=== PATIENT | female | born 1970 | race Caucasian/White ===

== ENCOUNTER 2016-08-02 09:17 | Inpatient (IN) ==
--- NOTE | 2016-08-02 09:40 | Anesthesia Evaluation PreOp ---
Date of Encounter: 08/02/16 Time of Encounter: 09:38 - Past History Planned Operation: TAHBSO Cardiac History: HTN, Hyperlipidemia Pulmonary History: Snore USED [employer] SALESPERSON History: Other (anxiety, no glaucoma) Other Medical History: Denies Any Significant HX Anesthesia History: No Prior Anesthetic Complications, Past Anesthesia (tonsils) Test: Negative Alcohol Use: occasionally Medications and Allergies Allergies Penicillins Allergy (Unverified 07/27/16 09:54) Rash - Meds/Allergy Pre-op Review Medications Reviewed: Yes Allergies Reviewed: Yes Beta Blockers on Current Med List: Yes If Beta Blockers taken, Date/Time (Last Dose taken): bisoprolol 2/5 2100 Anesthesia Results - Labs Laboratory Tests 04/30/16 07/27/16 07/27/16 14:47 10:05 10:05 Hgb 10.1 L Hct 37.6 Plt Count 355 Potassium 4.0 Serum , Qual 07/27/16 10:05 Hgb Hct Plt Count Potassium Serum , Qual Negative - Imaging EKG: report reviewed (nsr) Anesthesia Exam O2 Sat Height 1.52 m Weight 77.111 kg Height: 1.5 Weight: 77 NPO (# of Hours): >8 - HEENT Pupil (Motor): Pupils equal, EOMI Mallampati: I Teeth: Normal Oral Opening: Greater than 3 - USED CAR SALESPERSON LOC: Oriented USED CAR SALESPERSON Motor: Normal RUE, Normal LUE, Normal RLE, Normal LLE, Normal Face USED CAR SALESPERSON Sensory: Normal: RUE, LUE, RLE, LLE, Face - Cardiac Rhythm: Regular Murmur: None - Pulmonary Breath Sounds: bilateral Clear Respiratory Effort: Symmetrical Anesthesia Assess/Plan ASA Score: 2 Modified Pari Scale for Level of Consciousness: Cooperative, oriented, and tranquil Anesthetic Plan: General, Regional Monitoring Plan: Standard Monitors Recovery Plan: PACU
[2016-08-02] MEDS ORDERED: CeFAZolin Pre 2,000 MG/100 ML 2,000 MG/100 ML BAG IVPB ONE (09:42)
--- NOTE | 2016-08-02 09:44 | History & Physical Report ---
Date of Encounter: 08/02/16 Time of Encounter: 09:35 24 Hour HP Update - Instructions Instructions: If the History and Physical is less than 30 days old and was completed prior to A.M. admission and or procedure and has NOT been updated on calendar day of procedure please complete this update prior to performing procedure. - Update Patient reports changes in Medical Condition: No Changes in assessment/condition: No Changes in Medication: No Preop tests/diagnostics Reviewed: Yes Surgery Remains Indicated: Yes Consent for Planned Operative Procedure(s) Verified: Yes - Pre-Operative Checklist Preoperative Checklist Indicated: Yes Prophylactic Antibiotic Ordered: Yes Home Medications Include Beta Leyda: Yes Beta Leyda Taken Today (Day of Surgery): No Beta Leyda Taken Yesterday (Day Prior to Surgery): Yes Is VTE Prophylaxis Indicated?: Yes
[2016-08-02] MEDS ORDERED: Ringers Solution, Lactated 1,000 ML IVC SCH (09:45)
[2016-08-02] MEDS ORDERED: *HR* FentaNYL (PF) 100 MCG/2 ML VIAL ONE ×2 (09:50→10:44)
[2016-08-02] MEDS ORDERED: Scopolamine Patch 1.5 MG PATCH.TD72 TD ONE (09:51)
[2016-08-02] MEDS ORDERED: *HR* Midazolam HCl 2 MG/2 ML VIAL ONE ×2 (09:51→09:57)
[2016-08-02] MEDS ORDERED: *HR* Propofol 200 MG/20 ML VIAL IVP ONE ×2 (09:51→09:53)
[2016-08-02] MEDS ORDERED: Lidocaine -MPF 2% 2 ML VIAL ONE (09:53)
[2016-08-02] MEDS ORDERED: *HR* Rocuronium Bromide 50 MG/5 ML VIAL ONE (09:54)
[2016-08-02] MEDS ORDERED: Bupivacaine/Clonidine Syringe 1 EACH SYRINGE ONE (09:56)
--- NOTE | 2016-08-02 10:33 | Anesthesia Procedures ---
Date of Encounter: 08/02/16 Time of Encounter: 10: Procedures: Anesthesia - Nerve Block Procedure Date: 08/02/16 Time: 10: Allergies/Adv Reactions: pcn Pre-op Diagnosis: menorrhagia Surgical Procedure: CASSY Checklist: Correct Patient Identifier, Correct procedure, History checked Correct side: Right (bilat) Blood Thinner: No Monitor Applied: EKG, BP, Pulse Oximetry Supplemental Oxygen via Nasal Cannula (L/min): 2 Indication: Post Op Analgesia (request per dr [email or web address]) Pre-op Neuro Deficits: No Block Type: Other (bilat QL1 ) Catheter placed: No Sterile Technique: Yes Ultrasound used: Yes Anatomy identified: Yes Visual spread of Local: Yes Neuro Stimulation: No Blood on Needle Aspiration: No Smooth Injection of Local: Yes Pain with Injection of Local: No Prep: Chlorhexadine Needle: 22 x 50 mm Stimuplex Local: 0.25% Bupivicaine w/Clonidine 20 mcg/cc Volume (cc): 40 Number of Attempts: 1 Complications: None/effective block Vitals: see OR note, block performed post indn
[2016-08-02] MEDS ORDERED: Lacri-Lube 3.5 GM TUBE ONE (10:37)
[2016-08-02] MEDS ORDERED: *HR* HYDROmorphone 2 MG/ML SYRINGE ONE (10:47)
[2016-08-02] MEDS ORDERED: Dexamethasone 4 MG/ML VIAL ONE (10:47)
[2016-08-02] MEDS ORDERED: Ondansetron 4 MG/2 ML VIAL ONE (10:47)
[2016-08-02] MEDS ORDERED: Neostigmine Methylsulfate 3 MG/3 ML SYRINGE ONE (10:56)
[2016-08-02] MEDS ORDERED: *HR* Promethazine 25 MG/ML VIAL IVP PRN (11:01)
[2016-08-02] MEDS ORDERED: Ketorolac 30 MG/ML VIAL ONE (11:01)
--- NOTE | 2016-08-02 11:47 | OB/GYN Procedure Note ---
Hysterectomy - Diagnosis Date of procedure: 08/02/16 Hysterectomy pre-op: symptomatic leiomyomata Post-op diagnosis: same - Procedure Hysterectomy procedure: total abdominal hysterectomy, bilateral salpingo- oophorectomy Surgeon: Dariela Cm Pin Sorter And Bagger: Vee Ventura Anesthesia provider: Te Eisenberg Anesthesia Type: General Estimated blood loss (cc): 50 Complications: none Fluids: crystalloid Urine output (cc): 100 Specimens: right ovary, uterus, cervix, left ovary, right fallopian tube, left fallopian tube Findings: enlarged fibroid uterus Disposition: PACU Narrative: Patient was taken to operative suite and placed under general anesthesia without difficulty. She was then prepped and draped in the normal sterile fashion in dorsal supine position. Antibiotics were given at room time. SCDs are on and active. A Pfannenstiel skin incision is then made and carried through to the underlying layer fascia with the Bovie. The fascia was then incised in the midline and the incision extended laterally with the Vega scissors. The fascia was then tented up and dissected off the rectus muscle sharply. Rectus muscles are in the midline. Peritoneum is entered sharply and the incision is extended superiorly and inferiorly with good visualization of the bladder. Self-retaining Nate retractor is then placed. The bowel was packed using moist laparotomy sponges. The uterus is brought to the incision and found to be enlarged with multiple fibroids. Normal appearing ovaries and tubes. Bilateral cornua were clamped with Carri clamps. The left ovary and tube were then retracted medially. Then ureters identified well inferior of the transection point of the infundibulopelvic ligament. Using the LigaSure device didn't reveal pelvic ligament was coagulated and transected. The left round ligament was in transected and cauterized using the LigaSure. In a similar fashion on the right side the right ovary and pedicle were retracted medially and the infundibulopelvic ligament is cauterized and transected. This is carried through round ligament as well.. A bladder flap was created sharply. The bladder was retracted anteriorly, and serial clamps are used through the uterine artery using a clamp, cut, and suture ligate with 0 Vicryl technique. The enlarged uterus was then amputated using Bovie electrocautery. A thyroid clamp was then placed on the cervical stump the cervix is elevated. Bilateral curved Heaneys are placed below the cervix and the cervix is amputated and removed from the abdomen. The vaginal corners are closed using 0 Vicryl suture. The midportion of the cuff is also closed using 0 Vicryl suture in a running locked fashion. Hemostasis is assured. Copious irrigation is used to clear the abdomen of all clots and debris. All packing is removed from the abdomen as well as the Nate retractor. The fascia is closed using 0 Vicryl in a running fashion. Skin is closed using 4-0 Vicryl in a subcuticular fashion. Steri- Strips and sterile dressing are placed. Patient tolerated the procedure well. Sponge, lap, needle, and instrument counts are correct at the end of the procedure. She is taken to PACU extubated and in stable condition.
[2016-08-02] MEDS ORDERED: *HR* HYDROmorphone (PF) 1 MG/ML SYRINGE ONE (12:18)
[2016-08-02] MEDS: *HR* HYDROmorphone (PF) 1 MG/ML SYRINGE IVP PRN ×2 (12:20→12:30)
--- NOTE | 2016-08-02 12:48 | Anesthesia Evaluation Post Op ---
Date of Encounter: 08/02/16 Time of Encounter: 12:46 - Vital Signs Vital Signs: Vital Signs/O2 Sat, Most Current Temp Pulse Resp BP Pulse Ox 97.9 F 62 16 139/85 100 08/02/16 12:19 08/02/16 12:29 08/02/16 12:29 08/02/16 12:29 08/02/16 12:29 - Lungs Lungs: Clear Ascult./Percussion - Airway Airway: Non-obstructed - Cardiovascular Regular Rate - Mental Status Mental Status: Asleep with brisk response to light stimulation - Pain Pain Scale: 2 Pain Scale used: Numeric (1 - 10) - Nausea Vomiting Nausea Vomiting: Not Present - Hydration Hydration: NPO, Kerr catheter - Discharge PostOp Status: Transfer Patient to floor
[2016-08-02] MEDS ORDERED: Ondansetron 4 MG/2 ML VIAL IVP PRN (12:51)
[2016-08-02] MEDS ORDERED: *HR* OxyCODONE/APAP 5/325 TABLET PO PRN (12:51)
[2016-08-02] MEDS ORDERED: Naloxone 0.4 MG/ML INJ IVP PRN (12:51)
--- NOTE | 2016-08-02 14:08 | OB/GYN Progress Note ---
Date of Encounter: 08/02/16 Time of Encounter: 14:06 - Assessment and Plan (1) S/P CASSY-BSO Current Visit: Yes Status: Acute routine postop care. Pain medication PRN. Rest today with faria in place. Will progress with ambulation tomorrow. Advance diet as tolerated. Subjective - Subjective Principal diagnosis: s/p CASSY W/BSO Patient reports: pain well controlled, other (sleeping, but arouses and is without complaint), no nauseated Objective - Vital Signs Latest vital signs: Vital Signs Temp Pulse Resp BP Pulse Ox 08/02/16 13:40 97.4 F L 80 16 140/91 100 08/02/16 13:00 97.5 F L 71 14 143/95 100 08/02/16 12:49 97.8 F 85 16 139/87 100 08/02/16 12:39 85 16 144/86 100 08/02/16 12:29 62 16 139/85 100 08/02/16 12:19 97.9 F 67 16 128/81 100 08/02/16 12:09 66 16 116/75 100 08/02/16 11:59 70 16 116/74 100 08/02/16 11:49 97.4 F L 67 12 114/75 99 08/02/16 09:39 98.8 F 97 18 131/84 98 Intake and Output 08/01/16 08/02/16 08/02/16 23:59 07:59 15:59 Output Total 110 / 110 Balance -110 / -110 Output: Urine 40 / 40 Estimated Blood Loss 50 / 50 Urine Amount (Catheter) 20 / 20 Other: Weight 79.1 kg Patient Weight 08/02/16 23:59 Weight 79.1 kg - I&O's I&O's: Intake & Output 07/30/16 07/31/16 08/01/16 08/02/16 23:59 23:59 23:59 23:59 Output Total 110 / 110 Balance -110 / -110 Weight 79.1 kg - Exam Lungs: bilateral: normal Chest: Normal S1, Normal S2 Abdomen: Absent: distention Consult Discharge Plan - Plan Referrals: Kellie Cotto MD [Primary Care Provider] -
[2016-08-02] MEDS: *HR* HYDROmorphone 2 MG/ML SYRINGE IVP PRN ×2 (15:09→20:04)
[2016-08-02] MEDS: Ringers Solution, Lactated 1,000 ML IVC SCH ×2 (20:03→22:59)
[2016-08-02] MEDS: Bisoprolol/HCTZ 2.5/6.25 TABLET PO SCH ×2 (21:29→22:53)
[2016-08-02] MEDS ORDERED: Ringers Solution, Lactated 500 ML IVC ONE (21:30)
[2016-08-03] MEDS ORDERED: Ringers Solution, Lactated 500 ML IVC ONE ×2 (04:04→04:12)
--- NOTE | 2016-08-03 04:08 | Event Note ---
Date of Encounter: 08/03/16 Time of Encounter: 04:05 Called by nursing with decreased urine output over the last 4 hours. Reports outputs of around 30ml or less per hour with the last being around 10-15cc. Patient was last given a 500cc bolus just prior to midnight. Will do a second 500cc bolus at this time and re-evaluate.
[2016-08-03] MEDS: *HR* HYDROmorphone 2 MG/ML SYRINGE IVP PRN (04:09)
[2016-08-03] MEDS: Ringers Solution, Lactated 1,000 ML IVC SCH ×2 (04:16→08:35)
[2016-08-03 04:58] LABS: eGFR For African Americans > 60 (> 60); eGFR For Non-African Americans > 60 (> 60)
--- NOTE | 2016-08-03 08:38 | OB/GYN Progress Note ---
Date of Encounter: 08/03/16 Time of Encounter: 08:38 - Assessment and Plan (1) S/P CASSY-BSO Current Visit: Yes Status: Acute routine postop care. Advance diet as tolerated. Ambulation encouraged. Change to PO pain medication. Urine output has improved with IV bolus. Subjective - Subjective Principal diagnosis: s/p CASSY with BSO for fibroids Interval history: Patient only complains of bloating and mild incision pain. Patient reports: appetite normal, pain well controlled, no nauseated Objective - Vital Signs Latest vital signs: Vital Signs Temp Pulse Resp BP Pulse Ox 08/03/16 07:53 98.8 F 79 16 98/57 08/03/16 04:00 99.3 F 66 18 122/82 98 08/03/16 00:00 98.9 F 69 20 121/73 100 08/02/16 20:00 97.9 F 71 18 130/82 99 08/02/16 16:16 98.3 F 71 16 121/76 98 08/02/16 15:08 98.6 F 78 16 139/90 96 08/02/16 15:00 16 08/02/16 14:00 98.6 F 77 14 141/94 100 08/02/16 13:40 97.4 F L 80 16 140/91 100 08/02/16 13:00 97.5 F L 71 14 143/95 100 08/02/16 12:49 97.8 F 85 16 139/87 100 08/02/16 12:39 85 16 144/86 100 08/02/16 12:29 62 16 139/85 100 08/02/16 12:19 97.9 F 67 16 128/81 100 08/02/16 12:09 66 16 116/75 100 08/02/16 11:59 70 16 116/74 100 08/02/16 11:49 97.4 F L 67 12 114/75 99 08/02/16 09:39 98.8 F 97 18 131/84 98 Intake and Output 08/02/16 08/03/16 08/03/16 23:59 07:59 15:59 Intake Total 1600 / 1600 1100 / 1100 Output Total 204 / 204 320 / 320 Balance 1396 / 1396 780 / 780 Intake: IV Fluids 1000 / 1000 1000 / 1000 Lactated Ringers 1,000 ML 1000 / 1000 1000 / 1000 @ 125 mls/hr IVC .Q8H STUART Rx#:[id number] Oral 600 / 600 100 / 100 Output: Catheter 204 / 204 320 / 320 Other: Meal Dinner Percent of Meal Consumed 90% - I&O's I&O's: Intake & Output 07/31/16 08/01/16 08/02/16 08/03/16 23:59 23:59 23:59 23:59 Intake Total 1600 / 1600 1100 / 1100 Output Total 346 / 346 320 / 320 Balance 1254 / 1254 780 / 780 Weight 79.1 kg - Exam Lungs: bilateral: normal Chest: Normal S1, Normal S2 Extremities: Present: normal Abdomen: Present: normal appearance, soft Incision OB: Present: dressed - Allied health notes Allied health notes reviewed: nursing Consult Discharge Plan - Plan Referrals: Kellie Cotto MD [Primary Care Provider] -
[2016-08-03] MEDS: *HR* HYDROcodone/Acet 5/325 mg TABLET PO PRN ×3 (09:55→20:50)
[2016-08-03] MEDS: Simethicone 80 MG TAB.CHEW PO PRN ×3 (10:26→20:51)
[2016-08-03] MEDS: Bisoprolol/HCTZ 2.5/6.25 TABLET PO SCH (20:50)
[2016-08-04] MEDS ORDERED: Ibuprofen 600 MG TABLET PO PRN (04:22)
[2016-08-04] MEDS ORDERED: Acetaminophen 325 MG TABLET PO PRN (04:23)
--- NOTE | 2016-08-04 08:11 | Discharge Summary ---
Date of Encounter: 08/04/16 Time of Encounter: 08:11 - Discharge Diagnosis (1) S/P CASSY-BSO Priority: Primary Status: Acute Comments: Patient is progressing well postoperatively. Passing flatus. Tolerating PO. Resting comfortably with Ibuprofen for pain. (2) Fibroid uterus Priority: Primary Status: Resolved Comments: Resolved with CASSY with BSO Qualifiers: Uterine leiomyoma location: unspecified location Qualified Code(s): D25.9 - Leiomyoma of uterus, unspecified (3) Menorrhagia, premenopausal Priority: Primary Status: Resolved Comments: Resolved with CASSY with BSO - Discharge Medications Prescriptions: HYDROcodone/Acet 5/325 mg [[place] 5-325 mg] 1 tab PO Q4HR PRN #42 tablet PRN Reason: Moderate Pain (4-6) Ibuprofen [Motrin] 600 mg PO Q6HR PRN #90 tablet PRN Reason: Pain Home Medications: Bisoprolol/HCTZ 2.5/6.25 [Ziac 2.5/6.25] 1 each PO HS 08/02/16 [History] Cholecalciferol (D-3) [Vitamin D] 1,000 unit PO HS 08/02/16 [History] Fexofenadine HCl [Allergy Relief] 180 mg PO DAILY PRN 08/02/16 [History] Sennosides/Docusate Sodium [Stool Softener Tablet] 1 each PO HS 08/02/16 [ History] HYDROcodone/Acet 5/325 mg [[place] 5-325 mg] 1 tab PO Q4HR PRN #42 tablet [Rx] Ibuprofen [Motrin] 600 mg PO Q6HR PRN #90 tablet 08/04/16 [Rx] Allergies/Adverse Reactions: Allergies Penicillins Allergy (Verified 08/02/16 10:08) Rash Data Procedures and tests throughout hospitalization: Laboratory Tests 08/03/16 04:19 Creatinine 0.69 Est GFR ( Amer) > 60 Est GFR (Non-Af Amer) > 60 Date of admission: 08/02/16 12:50 Primary care physician: Kellie Cotto MD Discharging clinician: Dariela Cm Anticipated date of discharge: 08/04/16 - Patient Status Disposition: Home, Self-Care Condition: Good Functional capacity at discharge: independent ambulation Overall status at discharge: patient is progressing back to baseline - Discharge Instructions Follow Up With: Kellie Cotto MD [Primary Care Provider] - - Diet and Activity Activity: increase activity as tolerated Diet: advance to your usual diet Hospital Course [employer] Time Attestation: Total time spent providing and/or coordinating discharge services: Exam - Constitutional Vitals: Temp Pulse Resp BP Pulse Ox 99.1 F 93 16 150/91 94 L 08/04/16 04:15 08/04/16 04:15 08/04/16 04:15 08/04/16 04:15 08/04/16 04:15 General appearance IM: A&O X 3, no acute distress - Respiratory Respiratory exam: Present: CTAB. Absent: respiratory distress - Cardiovascular Cardiovascular exam IM: Present: RRR. Absent: irregular rhythm - GI/Abdominal GI/Abdominal exam IM: normal bowel sounds, soft, tenderness (appropriate) Incision: normal, dry, intact - Rectal Rectal exam: deferred - Extremities Exam Extremities exam IM: Present: warm. Absent: calf tenderness, tenderness - VTE Documentation of Mechanical Device: Intermittent pneumatic compression device
[2016-08-04] MEDS: Simethicone 80 MG TAB.CHEW PO PRN (09:11)
[2016-08-04 09:48] VITALS: BP 119/77
== END 2016-08-04 11:29 | disposition home or self-care (01) | DRG 743 ==
LOC: SAMDAY 09:17 → 1NENUOBS 12:50
PROVIDERS: ADMIT Obstetrics & Gynecology; ATTEND Obstetrics & Gynecology